=== PATIENT | male | born 1990 | race Two or more races ===

== ENCOUNTER 2020-01-18 13:23 | Emergency (ER) | payer BC ==
[~2020-01-18] VITALS: Ht 177.8 cm; Wt 119.0 kg
--- NOTE | 2020-01-18 14:05 | NUR ---
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
--- NOTE | 2020-01-18 14:18 | NUR ---
[place]ISITING [place]. RPTS THAT HE IS ALLERGIC TO DOGS AND IS STAYING WITH A FRIEND WHO HAS DOGS. SUDDEN ONSET OF SOB AND FEELING THOUGH HE CAN'T TAKE A DEEP BREATH. 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 PT RA SAT 96% RR 16. ER PROVIDER AT BEDSIDE. PT ASSESSMENT REV AND POC DISCUSSED. QUESTIONS ANSWERED. CALL LIGHT W/I REACH, NAD NOTED.
[2020-01-18] MEDS ORDERED: INHALER INH (14:21)
[2020-01-18] MEDS ORDERED: ALBUTEROL/IPRATROPIUM 2.5MG/0.5MG, 3 ML NEB ONE (15:00)
--- NOTE | 2020-01-18 15:02 | NUR ---
STARETD BREATHING TREATMENT PER MAR. PT TOLERATING WELL
--- NOTE | 2020-01-18 15:41 | NUR ---
PT REPORTS FEELING MUCH BETTER AFTER BREATHING TREATMENT
--- NOTE | 2020-01-18 15:55 | NUR ---
TASK RN, FIRST CONTACT WITH PT: Patient given discharge instructions and they have confirmed that they understand the instructions. Patient ambulatory with steady gait. Pt left with d/c paperwork, Rx, and all personal belongings. NADN. No needs expressed.
[2020-01-18 15:56] VITALS: BP 129/75
== END 2020-01-18 15:58 | disposition home or self-care (01) ==
LOC: ED 15:42
DX: J45.31 Mild persistent asthma with (acute) exacerbation (principal)
CPT/HCPCS: 94640; 99283